=== PATIENT | male | born 1975 | race Caucasian/White ===

== ENCOUNTER 2020-07-24 04:12 | Emergency (ER) | payer OTHER ==
[~2020-07-24] VITALS: Ht 175.3 cm; Wt 111.1 kg
[2020-07-24 05:47] VITALS: BP 107/66
== END 2020-07-24 05:47 | disposition home or self-care (01) ==
LOC: ER 04:12
DX: N99.820 Postprocedural hemorrhage of a genitourinary system organ or structure following a genitourinary system procedure (principal); F12.90 Cannabis use, unspecified, uncomplicated